=== PATIENT | male | born 1975 | race Caucasian/White ===

== ENCOUNTER 2017-04-11 15:50 | Emergency (ER) | payer MEDICAID ==
[2017-04-11] MEDS: LORAZEPAM 2 MG INJ IV ×2 (17:51→19:32)
[2017-04-11] MEDS: ONDANSETRON 4 MG INJ IV (17:52)
[2017-04-11] MEDS: SOD CHLORIDE 0.9% 1,000 ML IV (17:52)
[2017-04-11] MEDS: FAMOTIDINE 20 MG INJ IV (17:53)
[2017-04-11 18:26] LABS: ADD MAN DIFF? NO
[2017-04-11 18:31] LABS: BASOPHILS % 0.4 % (0.0-2.0); EOSINOPHILS # 0.1 10^3/ul (0.0-0.5); HEMATOCRIT 45.1 % (42.0-52.0); HEMOGLOBIN 15.4 g/dl (14.0-18.0); LYMPHOCYTES # 1.4 10^3/ul (0.8-2.9); LYMPHOCYTES % 29.3 % (15.0-51.0); MEAN CORPUSCULAR HEMOGLOBIN 28.1 pg (29.0-33.0); MEAN CORPUSCULAR HGB CONC 34.1 g/dl (32.0-37.0); MEAN CORPUSCULAR VOLUME 82.3 fl (82.0-101.0); MONOCYTE # 0.3 10^3/ul (0.3-0.9); MONOCYTES % 6.6 % (0.0-11.0); NEUTROPHILS % 62.5 % (39.0-77.0); PLATELET COUNT 253 10^3/UL (140-415); RED BLOOD COUNT 5.48 10^6/ul (4.70-6.10); RED CELL DISTRIBUTION WIDTH 12.9 % (11.5-14.5)
[2017-04-11 18:31] LABS: WHITE BLOOD COUNT 4.9 10^3/ul (4.8-10.8)
[2017-04-11 19:00] LABS: ALANINE AMINOTRANSFERASE 74 IU/L (13-69); ALBUMIN 4.8 g/dl (3.3-4.9); ALKALINE PHOSPHATASE 107 IU/L (42-121); ANION GAP 24 (8-16); ASPARTATE AMINO TRANSFERASE 78 IU/L (15-46); BILIRUBIN,INDIRECT 0.4 mg/dl (0-1.1); BILIRUBIN,TOTAL 0.4 mg/dl (0.2-1.3); BLOOD UREA NITROGEN 7 mg/dl (7-20); CALCIUM 9.6 mg/dl (8.4-10.2); CARBON DIOXIDE 24 mmol/L (21-31); CHLORIDE 102 mmol/L (97-110); CREATININE 0.93 mg/dl (0.61-1.24); GLUCOSE 97 mg/dl (70-220); LIPASE 64 U/L (23-300); POTASSIUM 3.5 mmol/L (3.5-5.1); SODIUM 146 mmol/L (135-144); TOTAL PROTEIN 8.6 g/dl (6.1-8.1)
[2017-04-11 19:01] LABS: ALBUMIN/GLOBULIN RATIO 1.26
[2017-04-11 19:14] LABS: TROPONIN-I < 0.012 ng/ml (0.00-0.12)
[2017-04-11] MEDS: LIDOCAINE/MYLANTA 40 ML BTL PO (19:31)
== END 2017-04-11 20:52 | disposition home or self-care (01) ==
LOC: FTE 15:50
DX: F10.239 Alcohol dependence with withdrawal, unspecified (principal); R10.13 Epigastric pain
CPT/HCPCS: 36415; 80053; 83690; 84484; 85025; 93005; 96374; 96375; 99284-25

== ENCOUNTER 2017-05-12 14:40 | Emergency (ER) | payer SELFPAY, MEDICAID | END 2017-05-12 20:52 | disposition left against medical advice (07) | LOC: FTE 14:40 | DX: Z53.21 Procedure and treatment not carried out due to patient leaving prior to being seen by health care provider (principal) ==

== ENCOUNTER → 2018-11-10 | Emergency (ER) | payer SELFPAY ==
[~2018-11-10] MED LIST: LORAZEPAM 2 MG INJ IV
[2018-11-10] MEDS: LORAZEPAM 2 MG INJ IV (05:39)
[2018-11-10] MEDS: LACTATED RINGER'S 1,000 ML IV (05:40)
[2018-11-10 05:59] LABS: ADD MAN DIFF? NO
[2018-11-10 06:02] LABS: BASOPHILS % 0.3 % (0.0-2.0); EOSINOPHILS % 0.6 % (0.0-7.0); HEMATOCRIT 48.1 % (42.0-52.0); HEMOGLOBIN 16.7 g/dl (14.0-18.0); LYMPHOCYTES # 2.8 10^3/ul (0.8-2.9); LYMPHOCYTES % 43.8 % (15.0-51.0); MEAN CORPUSCULAR HEMOGLOBIN 27.7 pg (29.0-33.0); MEAN CORPUSCULAR HGB CONC 34.7 g/dl (32.0-37.0); MEAN CORPUSCULAR VOLUME 79.9 fl (82.0-101.0); MEAN PLATELET VOLUME 10.9 fl (7.4-10.4); MONOCYTE # 0.3 10^3/ul (0.3-0.9); MONOCYTES % 4.3 % (0.0-11.0); NEUTROPHIL # 3.3 10^3/ul (1.6-7.5); NEUTROPHILS % 50.8 % (39.0-77.0); PLATELET COUNT 269 10^3/UL (140-415); RED BLOOD COUNT 6.02 10^6/ul (4.70-6.10); RED CELL DISTRIBUTION WIDTH 12.5 % (11.5-14.5)
[2018-11-10 06:02] LABS: WHITE BLOOD COUNT 6.5 10^3/ul (4.8-10.8)
[2018-11-10 06:24] LABS: ALANINE AMINOTRANSFERASE 84 IU/L (13-69); ALBUMIN 4.8 g/dl (3.3-4.9); ALBUMIN/GLOBULIN RATIO 1.54; ALKALINE PHOSPHATASE 131 IU/L (42-121); ANION GAP 15 (5-13); ASPARTATE AMINO TRANSFERASE 129 IU/L (15-46); BILIRUBIN,INDIRECT 1.2 mg/dl (0-1.1); BILIRUBIN,TOTAL 1.2 mg/dl (0.2-1.3); BLOOD UREA NITROGEN 8 mg/dl (7-20); CALCIUM 8.9 mg/dl (8.4-10.2); CARBON DIOXIDE 23 mmol/L (21-31); CHLORIDE 103 mmol/L (97-110); CREATININE 0.98 mg/dl (0.61-1.24); Estimated GFR > 60 mL/min (>60); GLUCOSE 132 mg/dl (70-220); LIPASE 91 U/L (23-300); POTASSIUM 3.6 mmol/L (3.5-5.1); SODIUM 141 mmol/L (135-144); TOTAL PROTEIN 7.9 g/dl (6.1-8.1)
[2018-11-10 06:35] LABS: TROPONIN-I < 0.012 ng/ml (0.000-0.120)
[2018-11-10] MEDS: SOD CHLORIDE 0.9% 1,000 ML IV ×2 (06:46→12:41)
[2018-11-10] MEDS: FAMOTIDINE 20 MG INJ IV (06:48)
[2018-11-10] MEDS: ONDANSETRON 4 MG INJ IV ×2 (06:48→12:32)
[2018-11-10 06:58] LABS: ADD UMIC YES; UR ASCORBIC ACID NEGATIVE (NEGATIVE); UR BACTERIA FEW /HPF (NONE SEEN); UR BILIRUBIN (Dip) NEGATIVE (NEGATIVE); UR BLOOD (Dip) 2+ mg/dL (NEGATIVE); UR CLARITY SLIGHTLY CLOUDY (CLEAR); UR COLOR AMBER (YELLOW); UR GLUCOSE (Dip) NEGATIVE (NEGATIVE); UR KETONES (Dip) TRACE mg/dL (NEGATIVE); UR LEUKOCYTE ESTERASE (Dip) NEGATIVE Leu/ul (NEGATIVE); UR MUCUS MANY /HPF (NONE SEEN); UR NITRITE (Dip) NEGATIVE (NEGATIVE); UR RBC 2 /HPF (0-5); UR SPECIFIC GRAVITY (Dip) 1.028 (1.003-1.030); UR TOTAL PROTEIN (Dip) 3+ mg/dl (NEGATIVE); UR UROBILINOGEN (Dip) NEGATIVE (NEGATIVE); UR WBC 3 /HPF (0-5)
[2018-11-10 07:27] LABS: AMPHETAMINE/METHAMPHETAMINE Negative (NEGATIVE); BARBITURATES Negative (NEGATIVE); BENZODIAZEPINES Negative (NEGATIVE); CANNABINOIDS Negative (NEGATIVE); COCAINE Negative (NEGATIVE); OPIATES Negative (NEGATIVE)
[2018-11-10] MEDS: LIDOCAINE/MYLANTA 40 ML BTL PO (12:31)
[2018-11-10] MEDS: CHLORDIAZEPOXIDE 25 MG CAP PO (12:32)
[2018-11-10] MEDS: BELLADONNA/PHENOBARBITAL TAB PO (12:40)
== END | disposition home or self-care (01) ==
LOC: E/R 05:11
DX: K29.20 Alcoholic gastritis without bleeding (principal); R00.2 Palpitations; F10.230 Alcohol dependence with withdrawal, uncomplicated; R10.13 Epigastric pain
CPT/HCPCS: 36415; 71045; 80053; 80307; 81001; 83690; 84484; 85025; 87086; 93005; 96361; 96374; 96375; 96376; 99285-25